=== PATIENT | female | born 1965 | race Caucasian/White ===

== ENCOUNTER 2016-05-21 19:01 | Emergency (ER) | payer BC ==
[2016-05-21 19:43] LABS: Hematocrit 39 % (35-47); Hemoglobin 12.8 g/dl (12.0-16.0); Mean Corpuscular HGB Conc 33 g/dl (31-36); Mean Corpuscular Hemoglobin 29 pg (27-31); Mean Corpuscular Volume 87 fL (80-97); Mean Platelet Volume 7 um3 (7.4-10.4); Red Blood Count 4.41 10^6/ul (4.0-5.4); Red Cell Distribution Width 13 % (10.5-15); White Blood Count 12.4 10^3/ul (3.5-10.8)
[2016-05-21 20:03] LABS: Albumin 3.8 g/dL (3.2-5.2); BUN/Creatinine Ratio 22.7 (8-20); Calcium 8.8 mg/dL (8.6-10.3); EGFR African American 86.8 (>60); EGFR Non-African American 67.5 (>60); Globulin 3.5 g/dL (2-4); Potassium 3.3 mmol/L (3.5-5.0); Total Bilirubin 0.4 mg/dL (0.2-1.0); Total Protein 7.3 g/dL (6.4-8.9)
[2016-05-21] MEDS ORDERED: Ondansetron INJ* 2 MG/ML VIAL IV ONE (20:28)
[2016-05-21] MEDS ORDERED: NS 0.9% 1000 ML* 1,000 ML IV ONE (20:28)
[2016-05-21] MEDS ORDERED: Ketorolac INJ* 30 MG/ML 1 ML VIAL IV ONE (20:28)
[2016-05-21] MEDS ORDERED: Iohexol 300* (CONTRAST) 10 ML SDV IV ONE (21:49)
[2016-05-21 22:46] LABS: Urine Bacteria Absent (Absent); Urine Bilirubin Negative (Negative); Urine Glucose Negative (Negative); Urine Nitrite Negative (Negative)
[2016-05-22] MEDS ORDERED: Ciprofloxacin TAB* 500 MG PO ONE ×2 (00:07→00:09)
[2016-05-22] MEDS ORDERED: metroNIDAZOLE TAB* 250 MG PO ONE ×2 (00:07→00:08)
[2016-05-22] MEDS ORDERED: Ondansetron ODT TAB* 4 MG PO ONE (00:09)
--- NOTE | 2016-05-22 00:15 | ED ---
Bg Narayanan Karl, scribed for Thomas Tovar MD on 05/21/16 at 2027 . Abdominal Pain/Female - HPI Summary HPI Summary: Pt is a 51 y/o female that presents to the ED c/o cramping abd pain in her lower abd. Pt reported her symptoms began with a fever 3 days ago and she started having abd pain and diarrhea 2 days ago. Pt reported her pain at a 6/10 at its worst but it is currently at a 4/10. Pt also reported decreased appetite and nausea. Pt denied vomiting, vaginal discharge, dysuria, blood in stool, abd surgeries, sore throat, rhinorrhea, chest congestion, and cough. - History of Current Complaint Chief Complaint: EDAbdPain Stated Complaint: DIARRHEA,FEVER,ABD PAIN Time Seen by Provider: 05/21/16 20:18 Hx Obtained From: Patient Hx Last Menstrual Period: Long time ago. Onset/Duration: Gradual Onset Timing: Constant Severity Initially: Moderate Severity Currently: Moderate Pain Intensity: 6 - abd pain Pain Scale Used: 0-10 Numeric Location: Discrete At: LLQ Radiates: No Character: Cramping Aggravating Factor(s): Nothing Alleviating Factor(s): Nothing Associated Signs and Symptoms: Positive: Fever, Decreased Appetite, Nausea, Diarrhea. Negative: Cough, Blood in Stool, Urinary Symptoms, Vaginal Bleeding, Vomiting Allergies/Adverse Reactions: Allergies Allergy/AdvReac Type Severity Reaction Status Date / Time Cefaclor [From Ceclor] Allergy Nausea Verified 07/06/15 23:26 PMH/Surg Hx/FS Hx/Imm Hx Endocrine/Hematology History: Denies: Hx Anticoagulant Therapy, Hx Diabetes, Hx Thyroid Disease Cardiovascular History: Reports: Hx Hypertension Respiratory History: Reports: Hx Asthma Denies: Hx Chronic Obstructive Pulmonary Disease (COPD), Hx Lung Cancer GI History: Denies: Hx Gall Bladder Disease, Hx Gastrointestinal Bleed, Hx Ulcer, Hx Urosepsis History: Denies: Hx Kidney Stones, Hx Renal Disease Neurological History: Denies: Hx Dementia, Hx Migraine, Hx Seizures, Hx Transient Ischemic Attacks (TIA) Psychiatric History: Reports: Hx Depression - Surgical History Surgery Procedure, Year, and Place: bunyonectomy, deviated septum Infectious Disease History: No Infectious Disease History: Denies: Hx Hepatitis, Hx Human Immunodeficiency Virus (HIV), Traveled Outside the [place] in Last 30 Days - Family History Known Family History: Positive: Cardiac Disease, Other - [place] Negative: Diabetes - Social History Alcohol Use: Occasionally Substance Use Type: Reports: None Smoking Status (MU): Never Smoked Tobacco Review of Systems Positive: Fever Eyes: Negative Negative: Sore Throat, Nasal Discharge Cardiovascular: Negative Negative: Cough Gastrointestinal: Other - decreased appetite Positive: Abdominal Pain, Diarrhea, Nausea. Negative: Vomiting Negative: dysuria, discharge, other - blood in stool Musculoskeletal: Negative Skin: Negative Neurological: Negative Psychological: Normal All Other Systems Reviewed And Are Negative: Yes Physical Exam Triage Information Reviewed: Yes Vital Signs On Initial Exam: Initial Vitals Temp Pulse Resp BP Pulse Ox 98.4 F 98 19 124/78 97 05/21/16 19:14 05/21/16 19:14 05/21/16 19:14 05/21/16 19:14 05/21/16 19:14 Vital Signs Reviewed: Yes Appearance: Positive: Well-Appearing, No Pain Distress Skin: Positive: Warm, Skin Color Reflects Adequate Perfusion, Dry Head/Face: Positive: Normal Head/Face Inspection Eyes: Positive: EOMI, [place] ENT: Positive: Normal ENT inspection Neck: Positive: Supple, Nontender Respiratory/Lung Sounds: Positive: Clear to Auscultation, Breath Sounds Present Cardiovascular: Positive: RRR Abdomen Description: Positive: Soft, Other: - mildly tender in the LLQ Bowel Sounds: Positive: Present Musculoskeletal: Positive: Normal, Strength/ROM Intact Neurological: Positive: Normal, Sensory/Motor Intact, Alert, Oriented to Person Place, Time Psychiatric: Positive: Affect/Mood Appropriate Diagnostics - Vital Signs Vital Signs Temp Pulse Resp BP Pulse Ox 05/21/16 19:14 98.4 F 98 19 124/78 97 - Laboratory Lab Results: Lab Results 05/21/16 05/21/16 05/21/16 Range/Units 19:33 19:33 19:33 WBC 12.4 H (3.5-10.8) 10^3/ul RBC 4.41 (4.0-5.4) 10^6/ul Hgb 12.8 (12.0-16.0) g/dl Hct 39 (35-47) % MCV 87 (80-97) fL MCH 29 (27-31) pg MCHC 33 (31-36) g/dl RDW 13 (10.5-15) % Plt Count 245 (150-450) 10^3/ul MPV 7 L (7.4-10.4) um3 Neut % (Auto) 78.4 (38-83) % Lymph % (Auto) 11.8 L (25-47) % Hill % (Auto) 8.9 (1-9) % Eos % (Auto) 0.5 (0-6) % Baso % (Auto) 0.4 (0-2) % Absolute Neuts (auto) 9.7 H (1.5-7.7) 10^3/ul Absolute Lymphs (auto) 1.5 (1.0-4.8) 10^3/ul Absolute Monos (auto) 1.1 H (0-0.8) 10^3/ul Absolute Eos (auto) 0.1 (0-0.6) 10^3/ul Absolute Basos (auto) 0 (0-0.2) 10^3/ul Absolute Nucleated RBC 0.02 10^3/ul Nucleated RBC % 0.1 INR (Anticoag Therapy) 0.94 (0.89-1.11) APTT 29.0 (26.0-36.3) seconds Sodium 130 L (133-145) mmol/L Potassium 3.3 L (3.5-5.0) mmol/L Chloride 101 (101-111) mmol/L Carbon Dioxide 20 L (22-32) mmol/L Anion Gap 9 (2-11) mmol/L BUN 20 (6-24) mg/dL Creatinine 0.88 (0.51-0.95) mg/dL Est GFR ( Amer) 86.8 (>60) Est GFR (Non-Af Amer) 67.5 (>60) BUN/Creatinine Ratio 22.7 H (8-20) Glucose 143 H (70-100) mg/dL Calcium 8.8 (8.6-10.3) mg/dL Total Bilirubin 0.40 (0.2-1.0) mg/dL AST 30 (13-39) U/L ALT 58 H (7-52) U/L Alkaline Phosphatase 134 H (34-104) U/L Total Protein 7.3 (6.4-8.9) g/dL Albumin 3.8 (3.2-5.2) g/dL Globulin 3.5 (2-4) g/dL Albumin/Globulin Ratio 1.1 (1-3) Result Diagrams: 05/21/16 19:33 05/21/16 19:33 Lab Statement: Any lab studies that have been ordered have been reviewed, and results considered in the medical decision making process. Abdominal Pain Fem Course/Dx - Course Course Of Treatment: DISCUSSED RESULTS WITH PATIENT. WILL START CIPRO/FLAGYL/ ZOFRAN AND F/U PMD; RETURN IF WORSE. DISCHARGE HOME STABLE. - Diagnoses Provider Diagnoses: Colitis, Abdominal pain Discharge - Discharge Plan Condition: Stable Disposition: HOME Prescriptions: Ciprofloxacin TAB* [Cipro Tab*] 500 mg PO BID #12 tab Metronidazole [Flagyl 500 MG TAB] 500 mg PO TID #19 tab Ondansetron ODT TAB* [Zofran Odt TAB*] 4 mg PO Q6H PRN #10 tab.odt PRN Reason: Nausea Patient Education Materials: Colitis (ED), Acute Abdominal Pain (ED) Referrals: Lucia Fernando MD [Primary Care Provider] - Additional Instructions: FOLLOW UP WITH YOUR DOCTOR. RETURN TO THE EMERGENCY DEPARTMENT FOR ANY WORSENING OF YOUR CONDITION; PAIN, FEVER, YOU FEEL ILL OR QUESTIONS OR CONCERNS. The documentation as recorded by the Bg mao Karl accurately reflects the service I personally performed and the decisions made by me, Thomas Tovar MD.
[2016-05-22 01:01] VITALS: BP 97/56
--- NOTE | 2016-05-22 07:24 | RAD ---
INDICATION: Lower abdominal pain and fever. COMPARISON: There are no prior studies available for comparison. TECHNIQUE: A CT scan of the abdomen and pelvis was performed with intravenous and oral contrast following intravenous injection of 150 ml of Omnipaque 300 nonionic contrast. Contiguous axial sections were obtained from the lung bases through the symphysis pubis. Images were reconstructed in the coronal and sagittal planes. FINDINGS: There are small infiltrates at both lung bases suggestive of atelectasis. No pleural effusion is present. The liver is mildly enlarged with decreased attenuation consistent with fatty infiltration. No significant focal abnormality is seen. No calcified gallstones are noted. The spleen is normal in size. The pancreas appears to be within normal limits. The kidneys and adrenal glands are normal in size. No hydronephrosis is seen. There is a 6 mm nonobstructing calculus present in the lower pole of the right kidney. There also appears to be a small 2 mm calculus in the midportion of the left kidney. There are multiple bilateral renal cysts. The aorta is normal in caliber and demonstrates homogeneous contrast opacification. The celiac, superior and inferior mesenteric arteries appear widely patent. No significant enlarged retroperitoneal lymph nodes. There are mildly prominent mesenteric lymph nodes present in the right lower quadrant measuring up to 0.8 cm in transverse dimension. The stomach, small and large bowel appear nondistended. The appendix is within normal limits. There is thickening of the wall of the ascending and transverse colon with stranding in the adjacent mesenteric fat. There appears to be sparing of the descending and sigmoid colon. There is a small periumbilical hernia containing fat. The uterus is anteverted and normal in size. There is a small amount of free intraperitoneal fluid present within the pelvis. No free intraperitoneal air is seen. No significant focal osseous abnormality is seen. IMPRESSION: 1. FINDINGS MOST CONSISTENT WITH COLITIS INVOLVING THE ASCENDING AND TRANSVERSE COLON. 2. SMALL AMOUNT OF FREE INTRAPERITONEAL FLUID IN THE PELVIS. 3. MILDLY PROMINENT MESENTERIC LYMPH NODES IN THE RIGHT LOWER QUADRANT. 4. MILD HEPATOMEGALY AND HEPATIC STEATOSIS. 5. SMALL BILATERAL NONOBSTRUCTING RENAL CALCULI.
--- NOTE | 2016-07-29 00:55 | ED ---
Bg Narayanan Karl, scribed for Thomas Tovar MD on 05/22/16 at 0034 . Progress - Progress Note Progress Note: CT Abd/Pelvis w/ [CT] (Radiologist) IMPRESSION: Findings consistent with colitis which may be post infectious possibly inflammatory. Course/Dx - Course Course Of Treatment: DISCUSSED RESULTS WITH PATIENT. WILL START CIPRO/FLAGYL/ ZOFRAN AND F/U PMD; RETURN IF WORSE. DISCHARGE HOME STABLE. - Diagnoses Provider Diagnoses: Colitis, Abdominal pain The documentation as recorded by the Bg mao Karl accurately reflects the service I personally performed and the decisions made by Guy fink William, MD.
== END 2016-05-22 01:05 | disposition home or self-care (01) ==
LOC: ED 19:01
DX: K52.9 Noninfective gastroenteritis and colitis, unspecified (principal); R10.32 Left lower quadrant pain; R50.9 Fever, unspecified; R19.7 Diarrhea, unspecified; R11.0 Nausea
CPT/HCPCS: 36415; 74177; 80053; 81003; 81015; 85025; 85610; 85730; 87086; 96361; 96374; 96375; 99284; A9270-GY; J1885; J2405; Q9967